=== PATIENT | female | born 1980 | race Caucasian/White ===

== ENCOUNTER → 2017-09-29 | Outpatient (CLI) | payer OTHER ==
[~2017-09-29] MED LIST: ALBU90OI INH; ALPR.5 PO; ASCO500 PO; CODGUAEL PO; Cyclobenzaprine5 MG PO; FAMO20 PO; GUAI600T33 PO; IBUP800 PO; LORA10 PO; METPRE4DP PO; Norco 5-325 Ta1 EACH PO; PRODEXEL PO; PSEU120ER PO; Prednisone20 MG PO; SIME80CH PO; SUCR1 PO; Ultram50 MG PO; Veetids 500500 MG PO; Zithromax250 MG PO
[2017-10-01 13:16] LABS: HPV Genotype 16 Not Detected (NOTDET); HPV Genotype 18 Not Detected (NOTDET)
[2017-10-08 10:19] LABS: HPV High Risk Other Not Detected (NOTDET)
== END | disposition home or self-care (01) ==
LOC: LAB SHORT 15:59 → OLS 15:59
PROVIDERS: Obstetrics & Gynecology Gynecology
DX: Z12.72 Encounter for screening for malignant neoplasm of vagina (principal)
CPT/HCPCS: 87624; G0123

== ENCOUNTER → 2017-10-06 | Outpatient (CLI) | payer OTHER | LOC: OLS 15:40 → LAB SHORT 15:40 | DX: N39.3 Stress incontinence (female) (male) (principal); N81.10 Cystocele, unspecified; N81.6 Rectocele; R68.81 Early satiety | CPT/HCPCS: 36415; 86304 ==